=== PATIENT | male | born 1955 | race Caucasian/White ===

== ENCOUNTER → 2016-08-16 | Outpatient (CLI) | payer SELFPAY ==
[~2016-08-16] MED LIST: CALC500P30 MC; GINK120C PO; LOVA10TA PO; MAGN100T6 PO; POTA10TA6 PO; SULF-221 PO
[2016-08-16 08:59] LABS: BASOPHILS % (AUTO) 1 % (0-2); EOSINOPHILS # (AUTO) 0.3 10^3uL; EOSINOPHILS % (AUTO) 4 % (0-4); LYMPHOCYTES # (AUTO) 2.1 X10^3; MEAN CORPUSCULAR HEMOGLOBIN 29.8 PG (26.0-34.0); MEAN CORPUSCULAR VOLUME 85 FL (80-100); MEAN PLATELET VOLUME 9.9 FL (6.0-9.5); MONOCYTES # (AUTO) 0.5 X10^3; MONOCYTES % (AUTO) 8 % (3-11); NEUTROPHILS # (AUTO) 3.9 X10^3; NEUTROPHILS % (AUTO) 57 % (51-67); PLATELET COUNT 240 10^3uL (150-450); WHITE BLOOD COUNT 6.81 10^3uL (4.0-11.0)
[2016-08-16 09:51] LABS: ALBUMIN 4.3 g/dL (3.4-5.0); ANION GAP 14.8 MEQ/L (3-15); CALCULATED IONIZED CALCIUM 4.2 mg/dL (3.8-4.6); TOTAL PROTEIN 7.7 g/dL (6.4-8.5)
[2016-08-16 10:10] LABS: BILIRUBIN,URINE Negative (Negative); CLARITY,URINE Clear; COLOR,URINE Yellow; GLUCOSE, URINE (UA) Negative (Negative); LEUKOCYTE ESTERASE ,URINE Negative (Negative); PH,URINE 7.5 (5.0 - 8.0); UROBILINOGEN,URINE 0.2 mg/dL (0.2-1.0)
[2016-08-16 10:28] LABS: URINE CENTRIFUGED VOLUME 12 mL
[2016-08-16 10:29] LABS: RBC,URINE None Seen /HPF
== END ==
LOC: LAB 08:17
PROVIDERS: ATTEND Family Medicine
DX: Z00.00 Encounter for general adult medical examination without abnormal findings (principal); Z12.5 Encounter for screening for malignant neoplasm of prostate
CPT/HCPCS: 36415; 80053; 80061; 81003; 81015; 84153; 84443; 85025

== ENCOUNTER 2016-08-22 08:40 | Day surgery (SDC) | payer SELFPAY ==
[2016-08-22] VITALS (7 sets, daily range): BP systolic 117–153; BP diastolic 71–108
[~2016-08-22] VITALS: Ht 190.5 cm; Wt 137.0 kg
[~2016-08-22 08:40] MED LIST changes: +ACETAMINOPHEN 500 MG TAB (TYLENOL) PO SCH; +LACTATED RINGERS 1,000 ML IV SCH; +SODIUM CHLORIDE FLUSH 3 ML SYR IV SCH; +ceFAZolin 2,000 MG in SODIUM CHLORIDE VIAL (PF) 20 ML IV SCH; +oxyCODONE IMMEDIATE RELEASE 5 MG (OXYIR) TAB PO SCH
--- OUTSIDE RECORDS SUMMARY | 2016-08-22 08:45 | XMS REPORT | Continuity of Care Document ---
Author Author [facility] Address Unknown Phone Unavailable Allergies Medications Problems Date Dx Coded Attending Type Code Diagnosis Diagnosed By 08/28/2015 ALYCE GIANG Ot S10.96XA INSECT BITE OF UNSPECIFIED PART OF NECK , 08/28/2015 ALYCE GIANG Ot W57.XXXA BIT/STUNG BY NONVENOM INSECT OTH NONVE 08/28/2015 ALYCE GIANG Ot Y92.[address] OF OCCURRENCE OF 08/28/2015 ALYCE GIANG Ot Y93.89 ACTIVITY, OTHER SPECIFIED Procedures Results Test Result Range Complete blood count (CBC) with automated white blood cell (WBC) differential - 08/16/16 08:25 Blood automated leukocyte count 6.81 4.0 -11.0 Erythrocytes 5.50 4.50-5.50 12.0-16.0;g/dL 16.4 13.5-17.0 Hematocrit 46.90 39.00-50.00 Automated erythrocyte mean corpuscular volume 85 80-100 Mean corpuscular hemoglobin (MCH) determination 29.8 26.0-34.0 Automated erythrocyte mean corpuscular hemoglobin concentration measurement ( mass/volume) 35.0 31.0-37.0 Erythrocyte distribution width 12.9 11.8 -15.6 Automated blood platelet count 240 150- 450 Automated blood platelet mean volume measurement 9.9 6.0-9.5 Automated neutrophil percentage 57 51- 67 Lymphocytes/100 leukocytes 30 20-46 Automated monocyte percentage 8 3-11 Eosinophil count auto 4 0-4 Automated basophil percentage 1 0-2 Automated blood neutrophil count 3.9 Blood lymphocytes count (number/volume) 2.1 Automated blood monocyte count 0.5 Blood absolute eosinophil count 0.3 Basophils 0.1 Comprehensive metabolic panel - 08/16/16 08:25 Sodium measurement 97 70-110 CARBON DIOXIDE 29 22-29 Serum or plasma anion gap 14.8 3-15 BLOOD UREA NITROGEN 15 7-18 CREATININE SERUM 0.83 0.8-1.5 Brucella species antibody panel (IgG, IgM) 18 10-20 Estimated glomerular filtration rate (GFR) 114.7 Estimated glomerular filtration rate (GFR) non- 94.8 OSMOLALITY,CALCULATED 269 280-300 CALCIUM 9.9 8.8-10.8 Calculated ionized calcium measurement 4.2 3.8-4.6 BILIRUBIN,TOTAL 0.8 0.1-1.0 Serum or plasma alkaline phosphatase measurement 55 38-126 ASPARTATE AMINO TRANSFERASE 36 15-37 ALANINE AMINOTRANSFERASE 48 30-65 Serum or plasma total protein measurement 7.7 6.4-8.5 Serum or plasma albumin measurement 4.3 3.4-5.0 Serum or plasma albumin/globulin mass ratio 1.264 1.1-1.8 THYROID STIMULATING HORMONE* - 08/16/16 08:25 THYROID STIMULATING HORMONE 2.23 0.46- 4.68 Prostate specific Ag - 08/16/16 08:25 Prostate specific Ag 3.0 0.0-4.0 LIPID PANEL - 08/16/16 08:25 Cholesterol 266 50-200 HDL Cholesterol 48 40-60 Triglycerides 169 10-150 LDL CHOLESTEROL 184 50-130 VLDL Cholesterol, calc 34 4.00-40.00 Cholesterol.total/Cholesterol.in HDL 5.5 0.0-5.0 UA CULTURE IF INDICATED* - 08/16/16 08:25 COLLECTION METHOD RANDOM VOIDED Color of urine by auto Yellow Urine appearance determination Clear Urine pH measurement by automated test strip 7.5 5.0 - 8.0 Specific gravity of urine by automated test strip 1.020 1.005-1.030 Urine protein measurement by test strip (mass/volume) 1+ Negative Urine glucose detection by automated test strip Negative Negative Urine erythrocytes count by automated test strip (number/volume) Negative Negative Urine ketones detection by automated test strip Negative Negative Urine nitrite detection by test strip Negative Negative Urine total bilirubin detection by automated test strip Negative Negative Urine urobilinogen measurement by automated test strip (mass/volume) 0.2 0.2-1.0 Urine leukocyte esterase detection by dipstick Negative Negative Microscopic examination of urine - 08/16/16 08:25 Urine volume measurement 12 mL Urine erythrocytes detection by automated method None Seen Automated urine sediment leukocyte count by microscopy (number/high power field ) None Seen Bacteria None Seen SQUAMOUS EPITHELIAL CELL,UR None Encounters ACCT No. Visit Date/Time Discharge Status Pt. Type Provider Facility Loc./Unit Complaint [id number] 08/16/2016 09:22:00 Document Registration [id number] 08/23/2015 11:02:00 [facility], ALYCE Roby [facility]
[2016-08-22] MEDS ORDERED: LIDOCAINE/EPINEPHRINE 1%-1:100,000 (XYLOCAINE) 20ML VIAL ONE (09:25)
[2016-08-22] MEDS ORDERED: BUPIVACAINE/EPINEPHRINE 0.25%-1:200,000 (MARCAINE) 30 ML VIAL INJ ONE (09:25)
[2016-08-22] MEDS ORDERED: REMIFENTANIL 1 MG (ULTIVA) VIAL IV ONE (10:16)
[2016-08-22] MEDS ORDERED: PROPOFOL 60 ML IV ONE (10:16)
[2016-08-22] MEDS ORDERED: MIDAZOLAM 2 MG/2 ML (VERSED) VIAL ONE (10:17)
[2016-08-22] MEDS ORDERED: ceFAZolin 1000 MG (ANCEF) VIAL ONE (10:23)
[2016-08-22] MEDS ORDERED: OXYMETAZOLINE 0.05% NASAL SPRAY (AFRIN) 15 ML BTL ONE (10:42)
[2016-08-22] MEDS ORDERED: SUCCINYLCHOLINE 20 MG/ML 10 ML VIAL ONE (11:08)
[2016-08-22] MEDS ORDERED: diphenhydrAMINE 50 MG/ML INJ (BENADRYL) ONE (11:15)
[2016-08-22] MEDS ORDERED: ONDANSETRON 2 MG/ML (Z0FRAN) 2 ML VIAL ONE (11:15)
[2016-08-22] MEDS ORDERED: ROCURONIUM 50 MG/5 ML (ZEMURON) VIAL IV ONE (11:24)
[2016-08-22] MEDS ORDERED: GLYCOPYRROLATE 0.2 MG/ML (ROBINUL) 1 ML VIAL ONE ×2 (11:29→11:30)
[2016-08-22] MEDS ORDERED: NEOSTIGMINE 1 MG/ML SYRINGE ONE (11:29)
[2016-08-22] MEDS ORDERED: ePHEDrine SULFATE 50 MG/ML 1 ML AMP ONE (11:37)
[2016-08-22] MEDS ORDERED: KETOROLAC 60 MG/2 ML (TORADOL) VIAL IM ONE (12:16)
[2016-08-22] MEDS ORDERED: morphine INJ 4 MG/ML 1 ML SYRINGE ONE (12:44)
[2016-08-22] MEDS ORDERED: MEPERIDINE 25 MG/ML (DEMEROL) SYRINGE ONE (13:08)
[2016-08-22] MEDS ORDERED: ALBUTEROL 0.083% NEB SOLUTION 2.5 MG/3 ML VIAL INH ONE (13:10)
--- NOTE | 2016-08-22 13:15 | OPERATIVE REPORT ---
DATE OF OPERATION: 08/22/2016 PRE-OPERATIVE DIAGNOSIS: Symptomatic epigastric hernia POST-OPERATIVE DIAGNOSIS: Symptomatic epigastric hernia OPERATIVE PROCEDURE: Open repair with mesh SURGEON: Leandro Lindsey MD DIRECTOR OF DISTANCE LEARNING: Angie Nails RN, CSFA ANESTHESIA: Local with IV conscious sedation, followed by general orotracheal POSITION: Supine PREP: Chlorhexidine ESTIMATED BLOOD LOSS: 25 mL FINDINGS: A 2.5 cm defect containing a large hernia sac, which had viable small bowel within it. OPERATIVE NOTE: The patient was prepped and draped in sterile fashion following satisfactory induction of analgesia. Local anesthetic of 0.125% Marcaine with epinephrine, plus 0.5% lidocaine with epinephrine was infiltrated at planned incision site. A vertical supraumbilical midline incision was made at the midline. This was carried down to the fascia. The patient was noted to have a relatively large hernia sac (softball size) containing small bowel. The sac was dissected free from the fascial margins. The sac was opened and found to contain viable small bowel. There were a few adhesions of the bowel to the sac. These were taken down with sharp dissection. The small bowel was reduced in the peritoneal cavity. Palpation within the peritoneum revealed no additional hernia defects. At this point because the patient at the time was grunting and snoring, it was difficult to maintain the small bowel in the peritoneal cavity. Therefore, anesthetic was converted to general. Excess hernia sac was excised and submitted to pathology. The hernia sac was then closed with continuous 3-0 Vicryl suture. Using blunt and sharp dissection, the preperitoneal space was dissected circumferentially to allow accommodation of the mesh. The Bard Ventralex patch, 8 cm, lot #[id number] was selected. This was placed in the preperitoneal space. The suture ring on the periphery of the mesh was secured to the fascia using interrupted [id number] sutures of 2-0 Prolene circumferentially. The fascia was then closed transversely over the patch with continuous #0 Prolene, starting from either side and tying in the middle. Closure was accomplished as follows. The subcutaneous tissues were approximated with simple interrupted 3-0 Vicryl suture. Additional local anesthetic was instilled into the wound for postop pain control. The skin was then closed with continuous subcuticular suture of 4-0 Monocryl and Dermabond dressing. A 2 x 2 gauze was placed in the umbilicus to maintain position and secured with paper tape. The patient tolerated the procedure well and transferred to recovery in stable condition. Final instrument, needle and sponge counts correct.
--- NOTE | 2016-08-22 13:20 | NUR ---
PATIENT RETURNS TO [facility] VIA CART. RAILS UP X2. SEE PACU NOTES FROM [id number].
--- NOTE | 2016-08-22 13:52 | NUR ---
PATIENT REPORTS BREATHING IS FEELING "PRETTY GOOD" AND PAIN IS JUST SLIGHT DISCOMFORT OR "TIGHTNESS." RESTING IN RECLINER. O2 97% ON RA.
[2016-08-22] MEDS ORDERED: ONDANSETRON 2 MG/ML (Z0FRAN) 2 ML VIAL IV PRN (14:20)
[2016-08-22] MEDS ORDERED: HYDROcodone/APAP 5 MG/325 MG (NORCO) TAB PO PRN (14:20)
--- NOTE | 2016-08-22 14:53 | NUR ---
PATIENT REPORTS TIGHTNESS IN CHEST CONTINUES. INSTRUCTED TO TAKE ALBUTEROL BROUGHT FROM HOME. PATIENT STATES THIS USUALLY HELPS, BUT HE DOES NOT NEED TO USE HIS INHALER AT HOME VERY OFTEN. O2 100% ON RA WHILE AWAKE.
--- NOTE | 2016-08-22 15:40 | NUR ---
PATIENT AND SPOUSE EDUCATED AGAIN ON SLEEP APNEA AND POTENTIAL NEED FOR SLEEP STUDY. SPOUSE INSTRUCTED TO WAKE PATIENT THROUGHOUT THE DAY TO DAY AND INTO THE NIGHT. ALSO INSTRUCTED TO BE WITH PATIENT AT ALL TIMES. PATIENT REPORTS HIS PAIN IS NOT BAD UNLESS HE COUGHS OR MOVES TOO MUCH. EXPLAINED THAT THIS IS NORMAL AFTER THIS TYPE OF PROCEDURE. PATIENT STATES HIS INHALER HELPED HIS BREATHING AND IS INSTRUCTED TO CONTINUE USE AT HOME IF NEEDED. INSTRUCTED TO COME BACK TO ER TRUPTI IF DIFFICULTY BREATHING. PATIENT AND SPOUSE VERBALIZE UNDERSTANDING OF THESE INSTRUCTIONS WELL DISCHARGE INSTRUCTIONS FROM DR. VILLAGRAN.
== END 2016-08-22 15:47 | disposition home or self-care (01) ==
LOC: ASC 08:40
PROVIDERS: ATTEND Surgery
DX: K43.9 Ventral hernia without obstruction or gangrene (principal); J45.909 Unspecified asthma, uncomplicated; E66.9 Obesity, unspecified; Z68.31 Body mass index [BMI] 31.0-31.9, adult
CPT/HCPCS: 36415; 49560; 49568; 84132; 93005; 94640; C1781; J0330; J0690; J1200; J1885; J2175; J2250; J2270; J2710; J3490; J7120; J7613; 88302